=== PATIENT | female | born 1940 | race Caucasian/White ===

== ENCOUNTER 2017-12-02 06:55 | Day surgery (SDC) | payer MEDICARE, BC ==
[2017-12-01 12:08] VITALS: BMI 24.8
[2017-12-02 07:59] VITALS: BP 164/60; TEMP 97.4
--- NOTE | 2017-12-02 10:41 | RAD ---
FLUOROSCOPIC GUIDED LUMBAR MYELOGRAM: INDICATIONS: Lumbar radiculopathy. TECHNIQUE: Informed consent was obtained. Preprocedure itinerant teacher assistant images were performed. The patient was placed sup ine on the fluoroscopic table. The site overlying the right L2-L3 interlaminar space was marked. Th e site was prepped and draped in the usual sterile fashion. Buffered 1% Lidocaine was administered t o the overlying subcutaneous tissues. Under fluoroscopic guidance, a 22 gauge spinal needle was guid ed down into the thecal sac via the right L2-L3 interlaminar space. Administration of 10 mL of Isovu e-200M solution demonstrated opacification of the thecal sac and visualization of intrathecal nerve r oots. The inner stylet was placed with the needle, and the needle was removed. The patient tolerate d the procedure without difficulty. TOTAL FLUOROSCOPIC TIME: One minute. TOTAL EXPOSURE: 298.4 mGy per M2. FINDINGS: Cooler Service Supervisor images demonstrate a right-sided ureteral stent. There are surgical clips within the right upp er quadrant of the abdomen, consistent with a prior cholecystectomy. There is a dorsal column stimul ator seen overlying the midline aspect of the mid to upper back. There are laminectomy changes at L4 -L5 and at L5-S1. There is dextroscoliosis of the lumbar spine. There is multilevel disk degenerati ve and facet osteoarthritic change. IMPRESSION: Successful lumbar myelogram. POS: WILLAM
--- NOTE | 2017-12-02 11:23 | CT ---
CT LUMBAR MYELOGRAM: INDICATIONS: History of lumbar spinal radiculopathy. COMPARISON: MRI lumbar spine dated 11/17/2013. FINDINGS: The gallbladder is surgically absent. There is a stent within the right renal collecting system with the proximal aspect of the stent seen within the right renal pelvis. The distal aspect of the stent projects beyond the field of view. There is some mild residual right-sided hydronephrosis. There i s a 2.3 mm, nonobstructing calculus involving the left mid kidney. There is severe calcification inv olving the abdominopelvic vasculature. There is a dorsal column stimulator seen entering into the sp inal canal, at T12-L1. The leads appear intact and project to a generator that is beyond the field o f view. There is diffuse osteopenia. There is dextroscoliosis of the lumbar spine. There is vacuum disk phenomenon seen at L1-L2, L2-L3, L4-L5, and L5-S1, likely indicative of some disk instability. At the L5-S1 level, there is post surgical change of a laminectomy. There is a broad based disk oste ophyte complex with loss of disk space height, inducing mild to moderate bilateral neural foraminal n arrowing, which is stable to the comparison in 2003. At the L4-L5 level, there is a broad-based disk bulge, causing moderate effacement of the ventral the ru sac. There are hemilaminotomy changes involving the inferior aspect of the L4 lamina. The broad -based disk bulge appears larger. There is loss of disk space height, in addition to the disk bulge, that induces worsening moderate bilateral neural foraminal narrowing. At the L3-L4 level, there is a broad-based bulge with facet hypertrophy, inducing mild narrowing of t he neural foramina without appreciable central canal narrowing. This is stable to the prior exam. T here is a worsening broad-based disk bulge, now causing moderate central canal narrowing with worseni ng moderate to severe bilateral neural foraminal narrowing, right greater than left. At the L2-L3 level, there is a broad-based disk osteophyte complex with facet hypertrophy and loss of disk space height, inducing mild bilateral neural foraminal narrowing, left greater than right. Thi s is stable to the prior exam. At L1-L2, there is a mild broad-based bulge with facet hypertrophy, inducing mild central canal narro wing and mild bilateral neural foraminal narrowing, which is stable to the prior exam. At T12-L1, there is a mild broad-based bulge without appreciable central canal or neural foraminal na rrowing. At T11-T12, there is a stable right paracentral protrusion causing mild ventral effacement of the sub arachnoid space, and contact with the right ventral lateral aspect of the spinal cord. IMPRESSION: 1. Worsening moderate central canal narrowing and bilateral neural foraminal narrowing at L4-L5 due to a worsening broad-based disk bulge. 2. Remaining spondylitic change of the lumbar spine is similar to the comparison study, as detailed above. POS: ZAC
== END 2017-12-02 11:00 | disposition home or self-care (01) ==
LOC: RAD 06:55
PROVIDERS: ATTEND Neurological Surgery
PROC: B02BY0Z Computerized Tomography (CT Scan) of Spinal Cord using Other Contrast, Unenhanced and Enhanced (ICD-10-PCS; principal; 2017-12-02)
DX: M51.16 Intervertebral disc disorders with radiculopathy, lumbar region (principal); M47.26 Other spondylosis with radiculopathy, lumbar region; I11.0 Hypertensive heart disease with heart failure; E78.5 Hyperlipidemia, unspecified; I50.9 Heart failure, unspecified; G43.909 Migraine, unspecified, not intractable, without status migrainosus; Z88.0 Allergy status to penicillin; Z88.1 Allergy status to other antibiotic agents
CPT/HCPCS: 62304; 72132

== ENCOUNTER 2019-07-06 08:36 | Outpatient (CLI) | payer MEDICARE, BC ==
--- NOTE | 2019-07-06 09:50 | RAD ---
EXAM: Esophagram HISTORY: Dysphagia hand gastroesophageal reflux disease COMPARISON: None EXPOSURE: 1.1 minutes; 8.521 Gy per centimeter squared FINDINGS: A double contrast barium swallow/esophagram was performed. Esophageal motility is normal. No mucosal lesions are seen in the esophagus. No extrinsic compression on the esophagus is seen. Large hiatal hernia. Severe gastroesophageal reflux to the level of the proximal thoracic esophagus. A small amount of aspiration was seen during this examination. This was eventually cleared with cough ing. IMPRESSION: 1. Large hiatal hernia 2. Severe gastroesophageal reflux disease 3. Aspiration
== END 2019-07-06 08:37 | disposition home or self-care (01) ==
LOC: RAD 08:36
PROVIDERS: ATTEND Internal Medicine
DX: R13.10 Dysphagia, unspecified (principal); K44.9 Diaphragmatic hernia without obstruction or gangrene; K21.9 Gastro-esophageal reflux disease without esophagitis
CPT/HCPCS: 74220

== ENCOUNTER 2020-05-30 12:26 | Outpatient (CLI) | payer MEDICARE, BC ==
--- NOTE | 2020-05-30 15:45 | MMO ---
Bilateral MAMMO Bilat Screen [facility]. CLINICAL HISTORY: Patient is 80 years old and is seen for screening. The patient has the following family history of breast cancer: maternal aunt; paternal aunt and 4 cousin females, many cousins. The patient has no personal history of cancer. The patient has a history of left Excisional Biopsy in 1969 - benign. VIEWS: The views performed were: bilateral craniocaudal with tomosynthesis and bilateral mediolateral oblique with tomosynthesis. FILMS COMPARED: The present examination has been compared to prior imaging studies performed at [facility] on 05/13/2011, 11/16/2012, 11/19/2013 and 08/02/2015. This study has been interpreted with the assistance of computer-aided detection. MAMMOGRAM FINDINGS: The breasts are heterogeneously dense, which could obscure a lesion on mammography. Benign calcifications are noted bilaterally. There are no suspicious masses, suspicious calcifications, or new areas of architectural distortion. IMPRESSION: THERE IS NO MAMMOGRAPHIC EVIDENCE OF MALIGNANCY. A ROUTINE FOLLOW-UP MAMMOGRAM IN 1 YEAR IS RECOMMENDED. THE RESULTS OF THIS EXAM WERE SENT TO THE PATIENT. ACR BI-RADS Category 2 - Benign finding MAMMOGRAPHY NOTE: 1. A negative mammogram report should not delay a biopsy if a dominant of clinically suspicious mass is present. 2. Approximately 10% to 15% of breast cancers are not detected by mammography. 3. Adenosis and dense breasts may obscure an underlying neoplasm. Reported by: KASSANDRA ROMERO MD Electonically Signed: [id number]
== END 2020-05-30 12:27 | disposition home or self-care (01) ==
LOC: BICMAMMO 12:26
PROVIDERS: ATTEND Internal Medicine
DX: Z12.31 Encounter for screening mammogram for malignant neoplasm of breast (principal); Z80.3 Family history of malignant neoplasm of breast; Z91.89 Other specified personal risk factors, not elsewhere classified
CPT/HCPCS: 77063; 77067

== ENCOUNTER 2021-03-28 01:30 | Inpatient (IN) | payer MEDICARE, BC ==
[2021-03-28 02:16] LABS: Hemoglobin 11.5 g/dL (12.0-16.0); Mean Corpuscular Hemoglobin 32.8 pg (27.0-31.0); Mean Corpuscular Volume 93.7 fL (78.0-98.0); Mean Platelet Volume 7.3 fL (7.4-10.4); Platelet Count 364 thou/uL (130-400); RBC Distribution Width 11.5 % (11.5-14.5); White Blood Cell (WBC) Count 29.6 thou/uL (4.8-10.8)
[2021-03-28] MEDS ORDERED: Fentanyl 100 MCG/2 ML VIAL ONE ×7 (02:22→16:15)
[2021-03-28 02:33] LABS: ALT (SGPT) 43 U/L (8-55); AST (SGOT) 85 U/L (5-34); Alkaline Phosphatase 210 U/L (40-110); Anion Gap 19 mmol/L (10-20); BUN (Urea Nitrogen) 28 mg/dL (9.8-20.1); Bilirubin, Total 0.5 mg/dL (0.2-1.2); Calc. Creatinine Clearance 0 mL/min (70-130); Calcium 9.7 mg/dL (7.8-10.44); Carbon Dioxide 14 mmol/L (23-31); Chloride 96 mmol/L (98-107); Globulin 2.7 g/dL (2.4-3.5); Glucose 134 mg/dL (83-110); Lipase 8 U/L (8-78); Protein, Total 5.7 g/dL (5.8-8.1); Sodium 125 mmol/L (136-145)
[2021-03-28 02:36] LABS: Band 32 % (5-11); Lymphocytes 2 % (21-51); MDiff Complete? YES; Monocytes 1 % (0-10); Neutrophil 65 % (42-75)
[2021-03-28] MEDS ORDERED: Cefepime 2 GM VIAL ONE (02:48)
[2021-03-28 03:07] LABS: Bilirubin Negative (Negative); Blood, Urine 2+ (Negative); Clarity Extra Turbid (Clear); Glucose, Urine (Dipstick) Normal (Negative); Ketone, Urine Negative (Negative); Leukocyte 500 Leu/uL (Negative); Nitrite Negative (Negative); Protein, Urine (Dipstick) 100 mg/dL (Neg-Trace); RBC/HPF 21-50 HPF (0-3); Specific Gravity, Urine 1.024 (1.002-1.036); Squamous Epithelial 0-3 HPF (0-3); Urobilinogen Normal mg/dL (Less than 2); WBC/HPF Greater than 50 HPF (0-3); pH, Urine 5.5 (5.0-9.0)
[2021-03-28 03:11] LABS: Bacteria/HPF 1+ HPF (None Seen)
[2021-03-28] MEDS ORDERED: Vancomycin 1 GM/200 ML BAG ONE (03:43)
[2021-03-28] MEDS ORDERED: Acetaminophen 500 MG TAB ONE (05:07)
[2021-03-28 05:16] LABS: Lactic Acid 1.5 mmol/L (0.5-2.2)
[2021-03-28] MEDS ORDERED: Dextrose 5 % And 0.9 % NaCl 1,000 ML IV SCH (06:30)
[2021-03-28 06:31] VITALS: BMI 24.5
[2021-03-28 07:27] LABS: SARS-CoV-2 NAA Rapid Test Not Detected (NotDetected)
[2021-03-28] MEDS ORDERED: Vancomycin 1 GM in Premix Bag 1 BAG IVPB SCH (07:30)
[2021-03-28] MEDS ORDERED: Ondansetron ODT 4 MG TAB PO PRN (08:04)
[2021-03-28] MEDS ORDERED: Acetaminophen 650 MG Suppository PR PRN (08:04)
[2021-03-28] MEDS ORDERED: Ondansetron PF 4 MG/2 ML Vial IVP PRN (08:04)
[2021-03-28] MEDS: Heparin 5,000 UNITS/ML VIAL SC SCH ×2 (09:06→20:46)
[2021-03-28] MEDS: Gabapentin 300 MG CAP PO SCH ×3 (09:07→20:45)
[2021-03-28] MEDS: Acetaminophen 325 MG TAB PO SCH ×4 (09:08→20:45)
[2021-03-28] MEDS ORDERED: tiZANidine HCl 4 MG TAB PO SCH (09:15)
[2021-03-28 09:35] LABS: CKMB 8.3 ng/mL (0-6.6)
[2021-03-28 09:46] LABS: Sodium 124 mmol/L (136-145)
[2021-03-28 11:00] LABS: Potassium, Urine 75.5 mmol/L
[2021-03-28] MEDS ORDERED: Iothalamate Meglumine 60% 50 ML VIAL FS ONE (12:34)
[2021-03-28] MEDS ORDERED: Lidocaine 2% Jelly 5 ML TUBE ONE (13:24)
[2021-03-28] MEDS ORDERED: Cefepime 2 GM in Sodium Chloride 0.9% 100 ML IVPB SCH (15:00)
[2021-03-28] MEDS ORDERED: tiZANidine HCl 4 MG TAB ONE ×2 (15:18→20:36)
[2021-03-28] MEDS ORDERED: Ketorolac Tromethamine 30 MG/ML VIAL ONE (16:15)
[2021-03-28] MEDS ORDERED: Calcium Chloride 1 GM/10 ML Abboject SYRINGE ONE (16:20)
[2021-03-28] MEDS ORDERED: Sodium Chloride 0.9% 10 ML ONE (16:44)
[2021-03-28] MEDS ORDERED: Norepinephrine 8 MG/0.9% NS 250 ML IVPB SCH (16:45)
[2021-03-28] MEDS ORDERED: ePHEDrine Sulfate 50 MG/10 ML VIAL ONE (16:48)
[2021-03-28] MEDS ORDERED: Sodium Chloride 0.9% 30 ML ONE (16:52)
[2021-03-28] MEDS ORDERED: Albumin 25% 25 GM/100 ML BOT IVPB SCH (17:00)
[2021-03-28 17:11] LABS: Actual Bicarbonate (HCO3a) 16.7 mEq/L (22-28); Base Excess (BEa) -7.7 mEq/L (-2.0 to +3.0); CO2 Tension 30.3 mmHg (35.0-45.0); Calcium, Ionized (arterial) 1.42 mmol/L (1.12-1.30); Carboxyhemoglobin (COHb) 0.3 gm% (0.0-3.0); Hemoglobin (Hb) 10.8 g/dL (12.0-16.0); O2 Tension (PaO2), arterial 93.3 mmHg (> 60.0); Potassium - ABG Lab 3.99 mmol/L (3.70-5.30); pH, Arterial 7.36 (7.35-7.45)
[2021-03-28 17:14] LABS: Puncture Site Arterial Line
[2021-03-28 17:15] LABS: ALV-art Gradient 18.555 mmHg (0-20)
[2021-03-28 17:49] LABS: Hemoglobin 10.5 g/dL (12.0-16.0); Mean Corpuscular HGB CONC 32.9 g/dL (32.0-36.0); Mean Corpuscular Volume 94.2 fL (78.0-98.0); Mean Platelet Volume 7.3 fL (7.4-10.4); Platelet Count 325 thou/uL (130-400); RBC Distribution Width 11.4 % (11.5-14.5); Red Blood Cell (RBC) Count 3.38 mill/uL (4.20-5.40); White Blood Cell (WBC) Count 21.7 thou/uL (4.8-10.8)
[2021-03-28 18:07] LABS: Sodium 128 mmol/L (136-145)
[2021-03-28 18:12] LABS: Anion Gap 12 mmol/L (10-20); BUN (Urea Nitrogen) 29 mg/dL (9.8-20.1); Calc. Creatinine Clearance 22 mL/min (70-130); Calcium 9.9 mg/dL (7.8-10.44); Carbon Dioxide 17 mmol/L (23-31); Chloride 105 mmol/L (98-107); Glucose 98 mg/dL (83-110); Potassium 4.1 mmol/L (3.5-5.1); Sodium 130 mmol/L (136-145)
[2021-03-28 18:23] LABS: Band 54 % (5-11); Burr Cells SLIGHT = 2-5 cells (100X) (0-1/hpf); Lymphocytes 3 % (21-51); MDiff Complete? YES; Metamyelocyte 2 % (0-0); Monocytes 4 % (0-10); Neutrophil 37 % (42-75); Platelet Morphology Comment Appears Adequate
[2021-03-28] MEDS ORDERED: Gabapentin 300 MG CAP ONE (20:36)
[2021-03-28] MEDS ORDERED: Heparin 5,000 UNITS/ML VIAL ONE (20:37)
[2021-03-28] MEDS ORDERED: Acetaminophen 325 MG TAB ONE (20:37)
[2021-03-28] MEDS: Sodium Chloride 0.9% 1,000 ML IV SCH (20:45)
[2021-03-28] MEDS: tiZANidine HCl 4 MG TAB PO SCH (20:47)
[2021-03-28] MEDS ORDERED: Sodium Chloride 0.9% 40 ML ONE (21:39)
[2021-03-28] MEDS: Albumin 25% 25 GM/100 ML BOT IVPB SCH (21:45)
[2021-03-28 22:44] LABS: Sodium 133 mmol/L (136-145)
[2021-03-29] MEDS ORDERED: Acetaminophen 325 MG TAB ONE ×4 (00:47→04:18)
[2021-03-29] MEDS: Acetaminophen 325 MG TAB PO SCH ×6 (00:49→19:41)
[2021-03-29] MEDS: Sodium Chloride 0.9% 1,000 ML IV SCH ×3 (03:19→22:41)
[2021-03-29] MEDS: Cefepime 1 GM in Sodium Chloride 0.9% 100 ML IVPB SCH (03:19)
[2021-03-29] MEDS: Albumin 25% 25 GM/100 ML BOT IVPB SCH ×4 (03:20→18:48)
[2021-03-29] MEDS ORDERED: Vancomycin HCl 750 MG in Sodium Chloride 0.9% 250 ML 250 ML IVPB SCH ×2 (06:00→08:00)
[2021-03-29 06:52] LABS: #Basophils 0.1 thou/uL (0.0-0.2); #Monocytes 0.8 thou/uL (0.11-0.59); #Neutrophils 16.2 thou/uL (1.40-6.50); %Basophils 0.3 % (0.0-1.0); %Eosinophils 0.2 % (0.0-10.0); %Lymphocytes 5.4 % (21.0-51.0); %Monocytes 4.4 % (0.0-10.0); %Neutrophils 89.7 % (42.0-75.0); Hemoglobin 10.3 g/dL (12.0-16.0); Mean Corpuscular HGB CONC 34.3 g/dL (32.0-36.0); Mean Corpuscular Hemoglobin 32.4 pg (27.0-31.0); Mean Corpuscular Volume 94.6 fL (78.0-98.0); Mean Platelet Volume 7.1 fL (7.4-10.4); Platelet Count 322 thou/uL (130-400); RBC Distribution Width 11.6 % (11.5-14.5); Red Blood Cell (RBC) Count 3.17 mill/uL (4.20-5.40); White Blood Cell (WBC) Count 18.1 thou/uL (4.8-10.8)
[2021-03-29 07:17] LABS: Vancomycin, Random 7.2 ug/mL (See Comment)
[2021-03-29 07:19] LABS: ALT (SGPT) 31 U/L (8-55); AST (SGOT) 46 U/L (5-34); Alkaline Phosphatase 143 U/L (40-110); Anion Gap 14 mmol/L (10-20); BUN (Urea Nitrogen) 26 mg/dL (9.8-20.1); Bilirubin, Total 0.3 mg/dL (0.2-1.2); Calc. Creatinine Clearance 29 mL/min (70-130); Calcium 10.5 mg/dL (7.8-10.44); Carbon Dioxide 16 mmol/L (23-31); Chloride 108 mmol/L (98-107); Globulin 2.9 g/dL (2.4-3.5); Glucose 84 mg/dL (83-110); Protein, Total 5.9 g/dL (5.8-8.1); Sodium 134 mmol/L (136-145)
[2021-03-29] MEDS ORDERED: traMADol HCl 50 MG TAB PO PRN (07:20)
[2021-03-29] MEDS: Heparin 5,000 UNITS/ML VIAL SC SCH ×2 (08:00→20:50)
[2021-03-29] MEDS: Gabapentin 300 MG CAP PO SCH (08:02)
[2021-03-29] MEDS: Fentanyl 100 MCG/2 ML VIAL SLOW IVP PRN (08:03)
[2021-03-29 09:32] LABS: Sodium 135 mmol/L (136-145)
[2021-03-29] MEDS: tiZANidine HCl 4 MG TAB PO SCH ×2 (10:46→20:50)
[2021-03-29 15:41] LABS: Sodium 135 mmol/L (136-145)
[2021-03-29] MEDS: HYDROcodone/Acetaminophen 5/325 mg Tablet PO PRN (16:02)
[2021-03-29] MEDS: traMADol HCl 50 MG TAB PO PRN (19:41)
[2021-03-30] MEDS: Acetaminophen 325 MG TAB PO SCH ×6 (00:18→20:55)
[2021-03-30] MEDS: Fentanyl 100 MCG/2 ML VIAL SLOW IVP PRN (03:41)
[2021-03-30] MEDS: Cefepime 1 GM in Sodium Chloride 0.9% 100 ML IVPB SCH (03:41)
[2021-03-30 06:11] LABS: #Eosinphils 0.1 thou/uL (0.0-0.7); #Lymphocytes 1.2 thou/uL (1.20-3.40); #Monocytes 0.6 thou/uL (0.11-0.59); #Neutrophils 12.4 thou/uL (1.40-6.50); %Basophils 0.2 % (0.0-1.0); %Eosinophils 0.5 % (0.0-10.0); %Lymphocytes 8.5 % (21.0-51.0); %Monocytes 3.9 % (0.0-10.0); %Neutrophils 86.9 % (42.0-75.0); Hemoglobin 9.9 g/dL (12.0-16.0); Mean Corpuscular HGB CONC 33.7 g/dL (32.0-36.0); Mean Corpuscular Volume 95.1 fL (78.0-98.0); Mean Platelet Volume 7.2 fL (7.4-10.4); Platelet Count 295 thou/uL (130-400); RBC Distribution Width 11.6 % (11.5-14.5); Red Blood Cell (RBC) Count 3.09 mill/uL (4.20-5.40); White Blood Cell (WBC) Count 14.3 thou/uL (4.8-10.8)
[2021-03-30 06:37] LABS: ALT (SGPT) 30 U/L (8-55); AST (SGOT) 36 U/L (5-34); Albumin 2.7 g/dL (3.4-4.8); Alkaline Phosphatase 122 U/L (40-110); Anion Gap 18 mmol/L (10-20); BUN (Urea Nitrogen) 22 mg/dL (9.8-20.1); Bilirubin, Total 0.2 mg/dL (0.2-1.2); Calc. Creatinine Clearance 44 mL/min (70-130); Calcium 9.6 mg/dL (7.8-10.44); Carbon Dioxide 13 mmol/L (23-31); Chloride 114 mmol/L (98-107); Globulin 1.9 g/dL (2.4-3.5); Protein, Total 4.6 g/dL (5.8-8.1); Sodium 141 mmol/L (136-145)
[2021-03-30 06:40] LABS: Glucose 50 mg/dL (83-110)
[2021-03-30 07:19] LABS: Vancomycin, Random 10.7 ug/mL (See Comment)
[2021-03-30] MEDS ORDERED: Dextrose 5% in Water 1,000 ML IV PRN (07:24)
[2021-03-30] MEDS ORDERED: Dextrose 50% Abboject 50 ML SYRINGE SLOW IVP PRN (07:24)
[2021-03-30] MEDS: tiZANidine HCl 4 MG TAB PO SCH ×2 (08:50→20:55)
[2021-03-30] MEDS: Heparin 5,000 UNITS/ML VIAL SC SCH ×2 (08:53→20:57)
[2021-03-30] MEDS: Gabapentin 300 MG CAP PO SCH (08:54)
[2021-03-30] MEDS: Sodium Bicarbonate 150 MEQ in Dextrose 5% in Water 1,000 ML IV SCH ×2 (08:55→21:26)
[2021-03-30] MEDS: Vancomycin 1 GM in Premix Bag 1 BAG IVPB SCH (10:02)
[2021-03-31] MEDS: Acetaminophen 325 MG TAB PO SCH ×6 (00:30→20:59)
[2021-03-31] MEDS: HYDROcodone/Acetaminophen 5/325 mg Tablet PO PRN ×3 (02:03→17:56)
[2021-03-31] MEDS: Cefepime 1 GM in Sodium Chloride 0.9% 100 ML IVPB SCH (02:41)
[2021-03-31 06:50] LABS: #Eosinphils 0.1 thou/uL (0.0-0.7); #Lymphocytes 2.2 thou/uL (1.20-3.40); #Monocytes 0.6 thou/uL (0.11-0.59); #Neutrophils 12.2 thou/uL (1.40-6.50); %Eosinophils 0.6 % (0.0-10.0); %Lymphocytes 14.8 % (21.0-51.0); %Monocytes 3.7 % (0.0-10.0); %Neutrophils 80.8 % (42.0-75.0); Hemoglobin 12.8 g/dL (12.0-16.0); Mean Corpuscular HGB CONC 32.8 g/dL (32.0-36.0); Mean Corpuscular Hemoglobin 30.6 pg (27.0-31.0); Mean Corpuscular Volume 93.4 fL (78.0-98.0); Mean Platelet Volume 7.3 fL (7.4-10.4); Platelet Count 423 thou/uL (130-400); RBC Distribution Width 11.7 % (11.5-14.5); Red Blood Cell (RBC) Count 4.17 mill/uL (4.20-5.40); White Blood Cell (WBC) Count 15.1 thou/uL (4.8-10.8)
[2021-03-31 07:10] LABS: ALT (SGPT) 34 U/L (8-55); AST (SGOT) 30 U/L (5-34); Albumin 3.4 g/dL (3.4-4.8); Alkaline Phosphatase 149 U/L (40-110); Anion Gap 11 mmol/L (10-20); BUN (Urea Nitrogen) 13 mg/dL (9.8-20.1); Bilirubin, Total 0.3 mg/dL (0.2-1.2); Calc. Creatinine Clearance 48 mL/min (70-130); Calcium 10.5 mg/dL (7.8-10.44); Carbon Dioxide 25 mmol/L (23-31); Chloride 106 mmol/L (98-107); Globulin 2.6 g/dL (2.4-3.5); Glucose 118 mg/dL (83-110); Potassium 3.4 mmol/L (3.5-5.1); Sodium 139 mmol/L (136-145)
[2021-03-31] MEDS: Heparin 5,000 UNITS/ML VIAL SC SCH ×2 (08:37→21:02)
[2021-03-31] MEDS: tiZANidine HCl 4 MG TAB PO SCH ×2 (08:38→20:59)
[2021-03-31] MEDS: Gabapentin 300 MG CAP PO SCH (08:38)
[2021-03-31] MEDS: Vancomycin 1 GM in Premix Bag 1 BAG IVPB SCH (09:19)
[2021-03-31] MEDS: Sodium Bicarbonate 150 MEQ in Dextrose 5% in Water 1,000 ML IV SCH (11:48)
[2021-03-31] MEDS: Potassium Chloride 30 MEQ in Sodium Chloride 0.9% 1,000 ML IV SCH (11:53)
[2021-03-31] MEDS: Lorazepam 0.5 MG TAB PO PRN (12:52)
[2021-03-31] MEDS: Docusate 100 MG CAP PO SCH (21:01)
[2021-03-31] MEDS: Fentanyl 100 MCG/2 ML VIAL SLOW IVP PRN (21:01)
[2021-04-01] MEDS: Potassium Chloride 30 MEQ in Sodium Chloride 0.9% 1,000 ML IV SCH ×2 (00:44→14:38)
[2021-04-01] MEDS: Acetaminophen 325 MG TAB PO SCH ×6 (00:44→22:45)
[2021-04-01] MEDS: Cefepime 1 GM in Sodium Chloride 0.9% 100 ML IVPB SCH (02:09)
[2021-04-01] MEDS: Lorazepam 0.5 MG TAB PO PRN (02:09)
[2021-04-01 04:28] LABS: #Eosinphils 0.1 thou/uL (0.0-0.7); #Lymphocytes 2.3 thou/uL (1.20-3.40); #Monocytes 0.5 thou/uL (0.11-0.59); #Neutrophils 8.2 thou/uL (1.40-6.50); %Basophils 0.2 % (0.0-1.0); %Eosinophils 0.6 % (0.0-10.0); %Lymphocytes 20.6 % (21.0-51.0); %Monocytes 4.7 % (0.0-10.0); %Neutrophils 73.8 % (42.0-75.0); Hemoglobin 12.3 g/dL (12.0-16.0); Mean Corpuscular HGB CONC 32.4 g/dL (32.0-36.0); Mean Corpuscular Volume 92.6 fL (78.0-98.0); Platelet Count 403 thou/uL (130-400); RBC Distribution Width 11.7 % (11.5-14.5); Red Blood Cell (RBC) Count 4.11 mill/uL (4.20-5.40); White Blood Cell (WBC) Count 11.1 thou/uL (4.8-10.8)
[2021-04-01 04:45] LABS: ALT (SGPT) 32 U/L (8-55); AST (SGOT) 32 U/L (5-34); Alkaline Phosphatase 130 U/L (40-110); Anion Gap 12 mmol/L (10-20); BUN (Urea Nitrogen) 12 mg/dL (9.8-20.1); Bilirubin, Total 0.4 mg/dL (0.2-1.2); Calc. Creatinine Clearance 56 mL/min (70-130); Carbon Dioxide 28 mmol/L (23-31); Chloride 105 mmol/L (98-107); Globulin 2.4 g/dL (2.4-3.5); Glucose 110 mg/dL (83-110); Potassium 3.4 mmol/L (3.5-5.1); Protein, Total 5.4 g/dL (5.8-8.1); Sodium 142 mmol/L (136-145)
[2021-04-01] MEDS: Fentanyl 100 MCG/2 ML VIAL SLOW IVP PRN ×2 (08:44→18:16)
[2021-04-01] MEDS: Heparin 5,000 UNITS/ML VIAL SC SCH ×3 (08:44→22:39)
[2021-04-01] MEDS: Amlodipine 5 MG TAB PO SCH ×2 (08:48→12:20)
[2021-04-01] MEDS: tiZANidine HCl 4 MG TAB PO SCH ×3 (08:48→22:48)
[2021-04-01] MEDS: Fish Oil 1,000 MG CAP PO SCH ×2 (08:48→12:20)
[2021-04-01] MEDS: Docusate 100 MG CAP PO SCH ×3 (08:48→22:44)
[2021-04-01] MEDS: Gabapentin 300 MG CAP PO SCH ×2 (08:49→12:20)
[2021-04-01 09:47] LABS: Vancomycin, Trough 13.1 ug/mL
[2021-04-01] MEDS: VANCOMYCIN 1.25 GM/250 ML BAG 1.25 GM in Premix Bag 1 BAG IVPB SCH (10:10)
[2021-04-01] MEDS: Atorvastatin Calcium 40 MG TAB PO SCH (22:43)
[2021-04-02] MEDS: Acetaminophen 325 MG TAB PO SCH ×6 (00:15→21:15)
[2021-04-02] MEDS: Cefepime 1 GM in Sodium Chloride 0.9% 100 ML IVPB SCH (02:56)
[2021-04-02] MEDS: Potassium Chloride 30 MEQ in Sodium Chloride 0.9% 1,000 ML IV SCH ×2 (02:57→15:45)
[2021-04-02] MEDS: Fentanyl 100 MCG/2 ML VIAL SLOW IVP PRN ×3 (03:33→23:33)
[2021-04-02 04:03] LABS: ALT (SGPT) 34 U/L (8-55); AST (SGOT) 43 U/L (5-34); Albumin 3.1 g/dL (3.4-4.8); Alkaline Phosphatase 133 U/L (40-110); Anion Gap 14 mmol/L (10-20); BUN (Urea Nitrogen) 9 mg/dL (9.8-20.1); Bilirubin, Total 0.5 mg/dL (0.2-1.2); Calc. Creatinine Clearance 60 mL/min (70-130); Calcium 9.3 mg/dL (7.8-10.44); Carbon Dioxide 29 mmol/L (23-31); Chloride 103 mmol/L (98-107); Globulin 2.4 g/dL (2.4-3.5); Glucose 106 mg/dL (83-110); Hemoglobin 13.6 g/dL (12.0-16.0); Lymphocytes 10 % (21-51); MDiff Complete? YES; Mean Corpuscular HGB CONC 33.6 g/dL (32.0-36.0); Mean Corpuscular Volume 92.2 fL (78.0-98.0); Mean Platelet Volume 6.9 fL (7.4-10.4); Monocytes 6 % (0-10); Neutrophil 84 % (42-75); Platelet Count 439 thou/uL (130-400); Platelet Morphology Comment Appears Increased; Potassium 3.6 mmol/L (3.5-5.1); Protein, Total 5.5 g/dL (5.8-8.1); RBC Distribution Width 11.7 % (11.5-14.5); RBC Morphology Normal; Red Blood Cell (RBC) Count 4.38 mill/uL (4.20-5.40); Sodium 142 mmol/L (136-145)
[2021-04-02] MEDS: Fish Oil 1,000 MG CAP PO SCH (09:05)
[2021-04-02] MEDS: Amlodipine 5 MG TAB PO SCH (09:05)
[2021-04-02] MEDS: Docusate 100 MG CAP PO SCH ×2 (09:05→23:21)
[2021-04-02] MEDS: Gabapentin 300 MG CAP PO SCH (09:06)
[2021-04-02] MEDS: tiZANidine HCl 4 MG TAB PO SCH ×2 (09:07→23:22)
[2021-04-02] MEDS: VANCOMYCIN 1.25 GM/250 ML BAG 1.25 GM in Premix Bag 1 BAG IVPB SCH (10:10)
[2021-04-02] MEDS: hydrALAZINE 20 MG/ML VIAL SLOW IVP PRN ×2 (13:25→18:00)
[2021-04-02] MEDS: Atorvastatin Calcium 40 MG TAB PO SCH (21:15)
[2021-04-02] MEDS: Heparin 5,000 UNITS/ML VIAL SC SCH (23:21)
[2021-04-03] MEDS: Acetaminophen 325 MG TAB PO SCH ×7 (00:15→21:22)
[2021-04-03] MEDS: Cefepime 1 GM in Sodium Chloride 0.9% 100 ML IVPB SCH (03:28)
[2021-04-03] MEDS: Potassium Chloride 30 MEQ in Sodium Chloride 0.9% 1,000 ML IV SCH (04:55)
[2021-04-03] MEDS: tiZANidine HCl 4 MG TAB PO SCH ×2 (09:17→21:23)
[2021-04-03] MEDS: Fish Oil 1,000 MG CAP PO SCH (09:17)
[2021-04-03] MEDS: Docusate 100 MG CAP PO SCH ×2 (09:17→21:22)
[2021-04-03] MEDS: Amlodipine 5 MG TAB PO SCH (09:17)
[2021-04-03] MEDS: Gabapentin 300 MG CAP PO SCH (09:18)
[2021-04-03] MEDS: Heparin 5,000 UNITS/ML VIAL SC SCH ×2 (09:18→21:31)
[2021-04-03 09:20] LABS: Hemoglobin 13.9 g/dL (12.0-16.0); Mean Corpuscular HGB CONC 33.5 g/dL (32.0-36.0); Mean Corpuscular Hemoglobin 31.2 pg (27.0-31.0); Mean Corpuscular Volume 93.3 fL (78.0-98.0); Mean Platelet Volume 6.8 fL (7.4-10.4); Platelet Count 450 thou/uL (130-400); Red Blood Cell (RBC) Count 4.46 mill/uL (4.20-5.40)
[2021-04-03 09:34] LABS: Anion Gap 19 mmol/L (10-20); BUN (Urea Nitrogen) 14 mg/dL (9.8-20.1); Calc. Creatinine Clearance 49 mL/min (70-130); Carbon Dioxide 21 mmol/L (23-31); Chloride 109 mmol/L (98-107); Potassium 4.1 mmol/L (3.5-5.1); Sodium 145 mmol/L (136-145)
[2021-04-03 09:35] LABS: Calcium 9.5 mg/dL (7.8-10.44); Glucose 135 mg/dL (83-110)
[2021-04-03 10:40] LABS: Band 4 % (5-11); Lymphocytes 15 % (21-51); MDiff Complete? YES; Metamyelocyte 1 % (0-0); Monocytes 5 % (0-10); Myelocyte 2 % (0-0); Neutrophil 72 % (42-75); Platelet Morphology Comment Appears Increased; Polychromasia SLIGHT = 2-3 cells (100X) (0-2/hpf); Reactive Lymphocytes 1 % (0-10); White Blood Cell (WBC) Count 19.9 thou/uL (4.8-10.8)
[2021-04-03] MEDS: VANCOMYCIN 1.25 GM/250 ML BAG 1.25 GM in Premix Bag 1 BAG IVPB SCH (10:50)
[2021-04-03] MEDS: Fentanyl 100 MCG/2 ML VIAL SLOW IVP PRN (11:30)
[2021-04-03] MEDS ORDERED: MEROPENEM 1 GM/50 ML 1 GM in Premix Bag 1 BAG IVPB SCH (14:00)
[2021-04-03] MEDS ORDERED: Meropenem 1 GM in Sodium Chloride 0.9% 100 ML IVPB SCH (14:00)
[2021-04-03 16:32] LABS: Actual Bicarbonate (HCO3a) 22.4 mEq/L (22-28); Base Excess (BEa) 0.7 mEq/L (-2.0 to +3.0); Calcium, Ionized (arterial) 1.28 mmol/L (1.12-1.30); Carboxyhemoglobin (COHb) 0.6 gm% (0.0-3.0); Hemoglobin (Hb) 13.8 g/dL (12.0-16.0); Potassium - ABG Lab 3.72 mmol/L (3.70-5.30); pH, Arterial 7.52 (7.35-7.45)
[2021-04-03 16:45] LABS: O2 Tension (PaO2), arterial 55.4 mmHg (> 60.0); Puncture Site LBA
[2021-04-03] MEDS ORDERED: Furosemide 100 MG/10 ML VIAL SLOW IVP SCH (17:00)
[2021-04-03] MEDS: Labetalol HCl 100 MG/20 ML VIAL SLOW IVP PRN (17:23)
[2021-04-03 17:30] LABS: Hemoglobin 13.3 g/dL (12.0-16.0); Mean Corpuscular HGB CONC 32.9 g/dL (32.0-36.0); Mean Corpuscular Hemoglobin 30.6 pg (27.0-31.0); Mean Corpuscular Volume 92.9 fL (78.0-98.0); Platelet Count 496 thou/uL (130-400); RBC Distribution Width 12.3 % (11.5-14.5); Red Blood Cell (RBC) Count 4.36 mill/uL (4.20-5.40); White Blood Cell (WBC) Count 21.3 thou/uL (4.8-10.8)
[2021-04-03 18:00] LABS: Band 2 % (5-11); Lymphocytes 6 % (21-51); MDiff Complete? YES; Monocytes 3 % (0-10); Neutrophil 85 % (42-75); Platelet Morphology Comment Appears Increased; RBC Morphology Normal; Reactive Lymphocytes 4 % (0-10)
[2021-04-03 18:03] LABS: ALT (SGPT) 43 U/L (8-55); AST (SGOT) 48 U/L (5-34); Albumin 3.5 g/dL (3.4-4.8); Alkaline Phosphatase 129 U/L (40-110); Anion Gap 21 mmol/L (10-20); BUN (Urea Nitrogen) 16 mg/dL (9.8-20.1); Bilirubin, Total 0.6 mg/dL (0.2-1.2); Calc. Creatinine Clearance 48 mL/min (70-130); Carbon Dioxide 19 mmol/L (23-31); Chloride 110 mmol/L (98-107); Globulin 2.6 g/dL (2.4-3.5); Glucose 131 mg/dL (83-110); Protein, Total 6.1 g/dL (5.8-8.1); Sodium 146 mmol/L (136-145)
[2021-04-03] MEDS ORDERED: Fentanyl 100 MCG/2 ML VIAL SLOW IVP PRN (20:32)
[2021-04-03] MEDS: Atorvastatin Calcium 40 MG TAB PO SCH (21:22)
[2021-04-03] MEDS: MEROPENEM 1 GM/50 ML 1 GM in Premix Bag 1 BAG IVPB SCH (23:03)
[2021-04-04] MEDS: Acetaminophen 325 MG TAB PO SCH ×6 (00:30→20:57)
[2021-04-04] MEDS ORDERED: Fentanyl 100 MCG/2 ML VIAL SLOW IVP PRN (00:33)
[2021-04-04 05:18] LABS: #Eosinphils 0.6 thou/uL (0.0-0.7); #Lymphocytes 2.3 thou/uL (1.20-3.40); #Monocytes 1.1 thou/uL (0.11-0.59); #Neutrophils 10.4 thou/uL (1.40-6.50); %Basophils 0.1 % (0.0-1.0); %Eosinophils 4.3 % (0.0-10.0); %Lymphocytes 16.1 % (21.0-51.0); %Monocytes 7.4 % (0.0-10.0); %Neutrophils 72.2 % (42.0-75.0); Hemoglobin 11.8 g/dL (12.0-16.0); Mean Corpuscular HGB CONC 33.8 g/dL (32.0-36.0); Mean Corpuscular Hemoglobin 31.5 pg (27.0-31.0); Mean Corpuscular Volume 93.1 fL (78.0-98.0); Platelet Count 381 thou/uL (130-400); RBC Distribution Width 12.2 % (11.5-14.5); Red Blood Cell (RBC) Count 3.74 mill/uL (4.20-5.40); White Blood Cell (WBC) Count 14.5 thou/uL (4.8-10.8)
[2021-04-04] MEDS: MEROPENEM 1 GM/50 ML 1 GM in Premix Bag 1 BAG IVPB SCH ×2 (05:19→18:45)
[2021-04-04 05:33] LABS: Anion Gap 16 mmol/L (10-20); BUN (Urea Nitrogen) 17 mg/dL (9.8-20.1); Calc. Creatinine Clearance 48 mL/min (70-130); Calcium 9.6 mg/dL (7.8-10.44); Carbon Dioxide 25 mmol/L (23-31); Chloride 110 mmol/L (98-107); Glucose 99 mg/dL (83-110); Potassium 3.5 mmol/L (3.5-5.1); Sodium 147 mmol/L (136-145)
[2021-04-04] MEDS: Docusate 100 MG CAP PO SCH ×2 (08:40→20:52)
[2021-04-04] MEDS: Fish Oil 1,000 MG CAP PO SCH (08:40)
[2021-04-04] MEDS ORDERED: Furosemide 40 MG/4 ML VIAL SLOW IVP SCH (09:00)
[2021-04-04] MEDS: Heparin 5,000 UNITS/ML VIAL SC SCH ×2 (10:17→20:53)
[2021-04-04] MEDS: VANCOMYCIN 1.25 GM/250 ML BAG 1.25 GM in Premix Bag 1 BAG IVPB SCH (10:27)
[2021-04-04] MEDS: Labetalol HCl 100 MG/20 ML VIAL SLOW IVP PRN (14:32)
[2021-04-04] MEDS: Gabapentin 300 MG CAP PO SCH (15:31)
[2021-04-04] MEDS: tiZANidine HCl 4 MG TAB PO SCH ×2 (15:33→20:52)
[2021-04-04 15:34] LABS: SARS-CoV-2 PCR by NAA Not Detected (NotDetected)
[2021-04-04] MEDS: Amlodipine 5 MG TAB PO SCH (15:34)
[2021-04-04] MEDS: Carvedilol 6.25 MG TAB PO SCH (20:53)
[2021-04-04] MEDS ORDERED: Atorvastatin Calcium 20 MG TAB PO SCH (21:15)
[2021-04-05] MEDS: Acetaminophen 325 MG TAB PO SCH ×5 (02:23→15:33)
[2021-04-05 05:11] LABS: Anion Gap 16 mmol/L (10-20); BUN (Urea Nitrogen) 22 mg/dL (9.8-20.1); Calc. Creatinine Clearance 51 mL/min (70-130); Calcium 9.4 mg/dL (7.8-10.44); Carbon Dioxide 26 mmol/L (23-31); Chloride 104 mmol/L (98-107); Glucose 83 mg/dL (83-110); Potassium 3.1 mmol/L (3.5-5.1); Sodium 143 mmol/L (136-145)
[2021-04-05] MEDS: traMADol HCl 50 MG TAB PO PRN ×2 (05:14→09:47)
[2021-04-05] MEDS: MEROPENEM 1 GM/50 ML 1 GM in Premix Bag 1 BAG IVPB SCH (05:18)
[2021-04-05 06:09] LABS: #Eosinphils 0.1 thou/uL (0.0-0.7); #Lymphocytes 2.7 thou/uL (1.20-3.40); #Monocytes 0.9 thou/uL (0.11-0.59); %Basophils 0.1 % (0.0-1.0); %Lymphocytes 21.3 % (21.0-51.0); %Monocytes 7.2 % (0.0-10.0); %Neutrophils 70.3 % (42.0-75.0); Mean Corpuscular HGB CONC 32.8 g/dL (32.0-36.0); Mean Corpuscular Hemoglobin 30.5 pg (27.0-31.0); Mean Corpuscular Volume 93.1 fL (78.0-98.0); Mean Platelet Volume 7.6 fL (7.4-10.4); Platelet Count 335 thou/uL (130-400); RBC Distribution Width 12.4 % (11.5-14.5); Red Blood Cell (RBC) Count 3.61 mill/uL (4.20-5.40); White Blood Cell (WBC) Count 12.8 thou/uL (4.8-10.8)
[2021-04-05] MEDS ORDERED: Potassium Chloride 20 MEQ TAB PO SCH ×2 (08:45→17:00)
[2021-04-05] MEDS ORDERED: Furosemide 40 MG/4 ML VIAL SLOW IVP SCH (08:45)
[2021-04-05] MEDS: Gabapentin 300 MG CAP PO SCH (09:12)
[2021-04-05] MEDS: Fish Oil 1,000 MG CAP PO SCH (09:15)
[2021-04-05] MEDS: Carvedilol 6.25 MG TAB PO SCH (09:15)
[2021-04-05] MEDS: tiZANidine HCl 4 MG TAB PO SCH (09:15)
[2021-04-05] MEDS: Heparin 5,000 UNITS/ML VIAL SC SCH (09:16)
[2021-04-05] MEDS: Amlodipine 5 MG TAB PO SCH (09:16)
[2021-04-05] MEDS: VANCOMYCIN 1.25 GM/250 ML BAG 1.25 GM in Premix Bag 1 BAG IVPB SCH ×2 (09:17→11:33)
[2021-04-05] MEDS: Docusate 100 MG CAP PO SCH (09:42)
[2021-04-05 15:48] VITALS: BP 132/60; TEMP 98.5
[2021-04-05] MEDS ORDERED: Atorvastatin Calcium 20 MG TAB PO SCH (21:00)
== END 2021-04-05 15:50 | DRG 853 ==
LOC: ERS 01:30 → T4-B 04:26 → PACU-TCU 22:22 → CCU 03-29 06:18 → T4-B 03-29 22:38 → 2NO 04-03 17:51
PROVIDERS: ADMIT Student in an Organized Health Care Education/Training Program; ATTEND Internal Medicine
PROC: 0T778DZ Dilation of Left Ureter with Intraluminal Device, Via Natural or Artificial Opening Endoscopic (ICD-10-PCS; principal; 2021-03-28)
PROC: BT1F1ZZ Fluoroscopy of Left Kidney, Ureter and Bladder using Low Osmolar Contrast (ICD-10-PCS; 2021-03-28)
PROC: 3E033XZ Introduction of Vasopressor into Peripheral Vein, Percutaneous Approach (ICD-10-PCS; 2021-03-28)
DX: A41.9 Sepsis, unspecified organism (principal); G93.41 Metabolic encephalopathy; R65.21 Severe sepsis with septic shock; J96.01 Acute respiratory failure with hypoxia; J81.0 Acute pulmonary edema; E87.1 Hypo-osmolality and hyponatremia; E87.2 Acidosis; N17.9 Acute kidney failure, unspecified; N13.6 Pyonephrosis; I10 Essential (primary) hypertension; E78.5 Hyperlipidemia, unspecified; E77.8 Other disorders of glycoprotein metabolism; K21.9 Gastro-esophageal reflux disease without esophagitis; I25.10 Atherosclerotic heart disease of native coronary artery without angina pectoris; R19.7 Diarrhea, unspecified; M54.50 Low back pain, unspecified; E86.0 Dehydration; G62.9 Polyneuropathy, unspecified; G89.29 Other chronic pain; Z20.822 Contact with and (suspected) exposure to COVID-19; R77.8 Other specified abnormalities of plasma proteins; E87.70 Fluid overload, unspecified; Z86.73 Personal history of transient ischemic attack (TIA), and cerebral infarction without residual deficits; Z88.0 Allergy status to penicillin; Z88.2 Allergy status to sulfonamides; Z88.1 Allergy status to other antibiotic agents; Z98.890 Other specified postprocedural states; Z79.82 Long term (current) use of aspirin; Z79.899 Other long term (current) drug therapy
CPT/HCPCS: 36415; 36416; 36600; 51701; 70450; 71045; 74176; 74420; 80048; 80053; 80202; 81003; 81015; 82436; 82533; 82553; 82805; 83605; 83690; 83930; 83935; 84133; 84295; 84300; 84443; 84484; 84540; 84550; 84560; 85025; 87040; 87045; 87046; 87086; 87324; 87427; 87449; 93005; 93010; 93306; 96365; 96366; 96367; 96375; 96376; C2617; J0360; J0692; J1644; J1885; J1940; J2185; J2405; J3010; J3370; J3480; J3490; J7042; J7050; J7070; P9047; Q9961; U0002; U0003; U0005

== ENCOUNTER 2021-05-11 15:36 | Outpatient (CLI) | payer MEDICARE, BC ==
[2021-05-11 16:43] LABS: Hemoglobin 14.2 g/dL (12.0-15.5); Mean Corpuscular Hemoglobin 30.5 pg (27.0-33.0); Mean Corpuscular Volume 95.5 fl (81.6-98.3); Mean Platelet Volume 10.2 fl (7.4-10.4); Platelet Count 244 10x3/uL (150-450); RBC Distribution Width 14.4 % (11.5-14.5); Red Blood Cell (RBC) Count 4.65 10x6/uL (3.90-5.03); White Blood Cell (WBC) Count 9.6 10x3/uL (3.5-10.5)
[2021-05-11 16:55] LABS: Anion Gap 16 mmol/L (10-20); BUN (Urea Nitrogen) 16 mg/dL (9.8-20.1); Calc. Creatinine Clearance 0 mL/min (70-130); Calcium 11.8 mg/dL (7.8-10.44); Carbon Dioxide 20 mmol/L (23-31); Chloride 108 mmol/L (98-107); Glucose 106 mg/dL (83-110); Potassium 4.4 mmol/L (3.5-5.1); Sodium 140 mmol/L (136-145)
[2021-05-12 16:26] LABS: SARS-CoV-2 PCR by NAA Not Detected (NotDetected)
== END 2021-05-11 15:37 | disposition home or self-care (01) ==
LOC: LABBT 15:36
PROVIDERS: ATTEND Urology
DX: Z01.818 Encounter for other preprocedural examination (principal); N39.0 Urinary tract infection, site not specified; N81.10 Cystocele, unspecified; N20.1 Calculus of ureter; Z20.822 Contact with and (suspected) exposure to COVID-19
CPT/HCPCS: 80048; 85027; U0003; U0005; 93005; 93010

== ENCOUNTER 2021-05-15 06:23 | Day surgery (SDC) | payer MEDICARE, BC ==
[2021-05-09 10:37] VITALS: BMI 21.9
[2021-05-15] MEDS ORDERED: Fentanyl 100 MCG/2 ML VIAL ONE (06:55)
[2021-05-15] MEDS ORDERED: Levofloxacin 500 mg/D5W 100 ml Premix Bag ONE (07:07)
[2021-05-15] MEDS ORDERED: Ondansetron PF 4 MG/2 ML Vial ONE (07:25)
[2021-05-15] MEDS ORDERED: ePHEDrine 50 MG/ML VIAL ONE (07:25)
[2021-05-15] MEDS ORDERED: PROPOFOL 200 MG/20 ML VIAL ONE (07:25)
[2021-05-15] MEDS ORDERED: Dexamethasone 20 MG/5 ML VIAL ONE (07:25)
[2021-05-15] MEDS ORDERED: Lidocaine 1% PF 5 ML VIAL ONE (07:25)
[2021-05-15] MEDS ORDERED: Iothalamate Meglumine 60% 50 ML VIAL FS ONE (07:42)
[2021-05-15] MEDS ORDERED: Oxybutynin 5 MG TAB ONE (08:15)
[2021-05-15] MEDS ORDERED: Phenazopyridine HCl 100 MG TAB ONE (08:15)
[2021-05-15] MEDS ORDERED: Ketorolac Tromethamine 30 MG/ML VIAL ONE (08:15)
== END 2021-05-15 09:58 | disposition home or self-care (01) ==
LOC: SDC 06:23
PROVIDERS: ATTEND Urology
PROC: 0TC78ZZ Extirpation of Matter from Left Ureter, Via Natural or Artificial Opening Endoscopic (ICD-10-PCS; principal; 2021-05-15)
PROC: 0T778DZ Dilation of Left Ureter with Intraluminal Device, Via Natural or Artificial Opening Endoscopic (ICD-10-PCS; 2021-05-15)
DX: N13.6 Pyonephrosis (principal); N81.10 Cystocele, unspecified; I11.0 Hypertensive heart disease with heart failure; I50.9 Heart failure, unspecified; E78.5 Hyperlipidemia, unspecified; G43.909 Migraine, unspecified, not intractable, without status migrainosus; K21.9 Gastro-esophageal reflux disease without esophagitis; I25.10 Atherosclerotic heart disease of native coronary artery without angina pectoris; Z86.73 Personal history of transient ischemic attack (TIA), and cerebral infarction without residual deficits; Z79.2 Long term (current) use of antibiotics; Z79.899 Other long term (current) drug therapy; Z88.0 Allergy status to penicillin; Z88.2 Allergy status to sulfonamides; Z88.8 Allergy status to other drugs, medicaments and biological substances; Z95.5 Presence of coronary angioplasty implant and graft
CPT/HCPCS: 52356; 74420; 82365; C2617; Q9961; 88300; J1100; J1885; J1956; J2405; J2704; J3010; J3490

== ENCOUNTER 2022-01-03 15:33 | Outpatient (CLI) | payer MEDICARE, BC | END 2022-01-03 15:34 | disposition home or self-care (01) | LOC: BICRAD 15:33 | PROVIDERS: ATTEND Urology | DX: Z87.442 Personal history of urinary calculi (principal) | CPT/HCPCS: 74018 ==

== ENCOUNTER 2023-04-23 22:02 | Inpatient (IN) | payer MEDICARE ==
[~2023-04-23 22:02] MED LIST: Iopamidol-370 76% 500 ML MDV (1 ML CHARGE) ONE
[2023-04-23 22:39] LABS: #Monocytes 0.7 thou/uL (0.11-0.59); #Neutrophils 7.1 thou/uL (1.40-6.50); %Basophils 0.3 % (0.0-1.0); %Eosinophils 0.1 % (0.0-10.0); %Lymphocytes 17.5 % (21.0-51.0); %Monocytes 6.8 % (0.0-10.0); %Neutrophils 74.6 % (42.0-75.0); Hematocrit 44.3 % (36.0-47.0); Hemoglobin 14.8 g/dL (12.0-16.0); Mean Corpuscular HGB CONC 33.4 g/dL (32.0-36.0); Mean Corpuscular Hemoglobin 30.1 pg (27.0-31.0); Mean Platelet Volume 9.1 fL (7.4-10.4); Platelet Count 344 10x3/uL (130-400); Red Blood Cell (RBC) Count 4.92 mill/uL (4.20-5.40); White Blood Cell (WBC) Count 9.6 10x3/uL (4.8-10.8)
[2023-04-23 22:46] LABS: Bacteria/HPF None Seen HPF (None Seen); Bilirubin Negative (Negative); Blood, Urine 1+ (Negative); CAUTI Indications for Culture Alt mental st,lethar; Clarity Clear (Clear); Glucose, Urine (Dipstick) Normal (Negative); Ketone, Urine Trace mg/dL (Negative); Leukocyte Negative Leu/uL (Negative); Nitrite Negative (Negative); Protein, Urine (Dipstick) Negative (Neg-Trace); RBC/HPF 0-3 HPF (0-3); Specific Gravity, Urine 1.005 (1.002-1.036); Squamous Epithelial 0-3 HPF (0-3); Urobilinogen Normal mg/dL (Less than 2); WBC/HPF 0-3 HPF (0-3)
[2023-04-23 22:52] LABS: Urine Culture Reflex No No
[2023-04-23 23:01] LABS: INR-International Normal Ratio 1.3; PTT 34.5 sec (22.9-36.1); Prothrombin Time 17.2 sec (12.0-14.7)
[2023-04-23 23:07] LABS: Troponin I 0.017 ng/mL (< 0.028)
[2023-04-23 23:08] LABS: ALT (SGPT) 8 U/L (8-55); AST (SGOT) 18 U/L (5-34); Albumin 4.7 g/dL (3.4-4.8); Alkaline Phosphatase 100 U/L (40-110); Anion Gap 22 mmol/L (10-20); BUN (Urea Nitrogen) 11 mg/dL (9.8-20.1); Bilirubin, Total 0.5 mg/dL (0.2-1.2); Calc. Creatinine Clearance 0 mL/min (70-130); Calcium 11.7 mg/dL (7.8-10.44); Carbon Dioxide 17 mmol/L (23-31); Chloride 100 mmol/L (98-107); Estimated GFR 50; Glucose 90 mg/dL (83-110); Magnesium 1.3 mg/dL (1.6-2.6); Protein, Total 7.7 g/dL (5.8-8.1); Sodium 135 mmol/L (136-145)
[2023-04-24] MEDS ORDERED: Ondansetron ODT 4 MG TAB PO PRN (01:07)
[2023-04-24] MEDS ORDERED: Acetaminophen 650 MG Suppository PR PRN (01:07)
[2023-04-24] MEDS ORDERED: Ondansetron PF 4 MG/2 ML Vial IVP PRN (01:07)
[2023-04-24] MEDS ORDERED: Labetalol HCl 100 MG/20 ML VIAL ONE (01:14)
[2023-04-24] MEDS ORDERED: Magnesium 2 GM/50 ML(in water) 2 GM in Premix 1 BAG IVPB SCH (01:15)
[2023-04-24] MEDS ORDERED: Magnesium 2 GM/50 ML BAG (IN WATER) ONE (01:33)
[2023-04-24] MEDS ORDERED: Aspirin 300 MG Suppository PR SCH ×2 (03:00→09:00)
[2023-04-24 03:16] LABS: #Monocytes 0.7 thou/uL (0.11-0.59); #Neutrophils 5.4 thou/uL (1.40-6.50); %Basophils 0.4 % (0.0-1.0); %Eosinophils 0.1 % (0.0-10.0); %Monocytes 8.1 % (0.0-10.0); %Neutrophils 67.4 % (42.0-75.0); Hematocrit 41.2 % (36.0-47.0); Hemoglobin 13.6 g/dL (12.0-16.0); Mean Corpuscular Hemoglobin 30.1 pg (27.0-31.0); Mean Corpuscular Volume 91.2 fl (78.0-98.0); Mean Platelet Volume 9.5 fL (7.4-10.4); Platelet Count 322 10x3/uL (130-400); RBC Distribution Width 13.1 % (11.5-14.5); Red Blood Cell (RBC) Count 4.52 mill/uL (4.20-5.40); White Blood Cell (WBC) Count 8.1 10x3/uL (4.8-10.8)
[2023-04-24 03:26] LABS: Hemoglobin A1c 5.3 % (4.0-6.0)
[2023-04-24 03:37] LABS: Anion Gap 19 mmol/L (10-20); BUN (Urea Nitrogen) 10 mg/dL (9.8-20.1); Calc. Creatinine Clearance 31 mL/min (70-130); Calcium 11.6 mg/dL (7.8-10.44); Carbon Dioxide 21 mmol/L (23-31); Cardiac Risk 2.8 (Less than 4.5); Chloride 100 mmol/L (98-107); Cholesterol 150 mg/dl (< 200 Desired); Estimated GFR 57; Glucose 100 mg/dL (83-110); HDL Cholesterol 54 mg/dL (>60 Neg Risk); LDL Cholesterol, Calculated 84 mg/dL; Magnesium 1.9 mg/dL (1.6-2.6); Potassium 3.8 mmol/L (3.5-5.1); Sodium 136 mmol/L (136-145); Triglycerides 59 mg/dL (Less than 150)
[2023-04-24] MEDS ORDERED: Aspirin 300 MG Suppository ONE (04:01)
[2023-04-24] MEDS ORDERED: cefTRIAXone (ROCEPHIN) 1 GM VIAL ONE (04:01)
[2023-04-24] MEDS ORDERED: Sodium Chloride 0.9% 100 ML ONE (04:01)
[2023-04-24] MEDS: cefTRIAXone\\ROCEPHIN 1 GM in Sodium Chloride 0.9% 100 ML IVPB SCH (04:17)
[2023-04-24] MEDS ORDERED: Sodium Chloride 0.9% 1,000 ML IV SCH (05:45)
[2023-04-24 06:12] LABS: Amphetamine Not Detected (NotDetected); Barbiturates Screen Not Detected (NotDetected); Benzodiazepine Screen Not Detected (NotDetected); Cocaine Metabolite Screen Not Detected (NotDetected); Methadone Not Detected (NotDetected); Methamphetamine Not Detected (NotDetected); Opiate Screen Detected (NotDetected); Oxycodone Screen Not Detected (NotDetected); Phencyclidine (PCP) Not Detected (NotDetected); THC/Cannabinoid Screen Not Detected (NotDetected); Tricyclic Screen Not Detected (NotDetected)
[2023-04-24] MEDS: Labetalol HCl 100 MG/20 ML VIAL SLOW IVP PRN ×2 (14:10→23:52)
[2023-04-24] MEDS ORDERED: LORazepam 2 MG/ML SYR.(CARPUJECT) ONE ×3 (18:12→19:15)
[2023-04-24 18:55] LABS: #Monocytes 0.7 thou/uL (0.11-0.59); #Neutrophils 7.5 thou/uL (1.40-6.50); %Basophils 0.3 % (0.0-1.0); %Eosinophils 0.1 % (0.0-10.0); %Lymphocytes 22.4 % (21.0-51.0); %Monocytes 6.8 % (0.0-10.0); %Neutrophils 68.7 % (42.0-75.0); Hemoglobin 14.1 g/dL (12.0-16.0); Mean Corpuscular HGB CONC 33.6 g/dL (32.0-36.0); Mean Corpuscular Hemoglobin 30.3 pg (27.0-31.0); Mean Corpuscular Volume 90.1 fl (78.0-98.0); Mean Platelet Volume 9.1 fL (7.4-10.4); Platelet Count 321 10x3/uL (130-400); RBC Distribution Width 13.2 % (11.5-14.5); Red Blood Cell (RBC) Count 4.66 mill/uL (4.20-5.40)
[2023-04-24 19:26] LABS: ALT (SGPT) 7 U/L (8-55); AST (SGOT) 15 U/L (5-34); Albumin 4.4 g/dL (3.4-4.8); Alkaline Phosphatase 89 U/L (40-110); Anion Gap 23 mmol/L (10-20); BUN (Urea Nitrogen) 8 mg/dL (9.8-20.1); Bilirubin, Total 0.4 mg/dL (0.2-1.2); Calc. Creatinine Clearance 34 mL/min (70-130); Calcium 11.2 mg/dL (7.8-10.44); Carbon Dioxide 16 mmol/L (23-31); Chloride 101 mmol/L (98-107); Estimated GFR 46; Globulin 2.3 g/dL (2.4-3.5); Glucose 146 mg/dL (83-110); Potassium 3.5 mmol/L (3.5-5.1); Protein, Total 6.7 g/dL (5.8-8.1); Sodium 136 mmol/L (136-145)
[2023-04-24 19:27] LABS: Troponin I 0.019 ng/mL (< 0.028)
[2023-04-25] MEDS: cefTRIAXone\\ROCEPHIN 1 GM in Sodium Chloride 0.9% 100 ML IVPB SCH (03:16)
[2023-04-25 03:56] LABS: #Monocytes 0.8 thou/uL (0.11-0.59); #Neutrophils 8.5 thou/uL (1.40-6.50); %Basophils 0.2 % (0.0-1.0); %Eosinophils 0.2 % (0.0-10.0); %Monocytes 7.3 % (0.0-10.0); %Neutrophils 75.5 % (42.0-75.0); Hematocrit 41.1 % (36.0-47.0); Hemoglobin 13.7 g/dL (12.0-16.0); Mean Corpuscular HGB CONC 33.3 g/dL (32.0-36.0); Mean Corpuscular Hemoglobin 29.9 pg (27.0-31.0); Mean Corpuscular Volume 89.7 fl (78.0-98.0); Mean Platelet Volume 9.1 fL (7.4-10.4); Platelet Count 288 10x3/uL (130-400); RBC Distribution Width 13.2 % (11.5-14.5); Red Blood Cell (RBC) Count 4.58 mill/uL (4.20-5.40); White Blood Cell (WBC) Count 11.3 10x3/uL (4.8-10.8)
[2023-04-25 04:22] LABS: Anion Gap 17 mmol/L (10-20); BUN (Urea Nitrogen) 10 mg/dL (9.8-20.1); Calc. Creatinine Clearance 44 mL/min (70-130); Calcium 10.7 mg/dL (7.8-10.44); Carbon Dioxide 20 mmol/L (23-31); Chloride 103 mmol/L (98-107); Estimated GFR 71; Glucose 114 mg/dL (83-110); Potassium 3.6 mmol/L (3.5-5.1); Sodium 136 mmol/L (136-145)
[2023-04-25] MEDS ORDERED: Aspirin 300 MG Suppository PR SCH ×2 (09:00)
[2023-04-25] MEDS ORDERED: Furosemide 20 MG/2 ML VIAL SLOW IVP SCH (09:15)
[2023-04-25] MEDS ORDERED: levETIRAcetam 500 MG/5 ML VIAL SLOW IVP SCH ×2 (13:22→13:45)
[2023-04-25] MEDS ORDERED: Valproate Sodium 500 MG in Sodium Chloride 0.9% 100 ML IVPB SCH (13:30)
[2023-04-25 15:37] LABS: Magnesium 1.5 mg/dL (1.6-2.6)
[2023-04-25] MEDS: levETIRAcetam 500 MG/5 ML VIAL SLOW IVP SCH (20:08)
[2023-04-26] MEDS: cefTRIAXone\\ROCEPHIN 1 GM in Sodium Chloride 0.9% 100 ML IVPB SCH (03:35)
[2023-04-26 04:29] LABS: #Monocytes 0.7 thou/uL (0.11-0.59); #Neutrophils 6.4 thou/uL (1.40-6.50); %Basophils 0.3 % (0.0-1.0); %Eosinophils 0.2 % (0.0-10.0); %Lymphocytes 21.8 % (21.0-51.0); %Monocytes 7.5 % (0.0-10.0); %Neutrophils 69.6 % (42.0-75.0); Hematocrit 39.2 % (36.0-47.0); Mean Corpuscular HGB CONC 33.2 g/dL (32.0-36.0); Mean Corpuscular Hemoglobin 29.9 pg (27.0-31.0); Mean Corpuscular Volume 90.1 fl (78.0-98.0); Mean Platelet Volume 9.2 fL (7.4-10.4); Platelet Count 216 10x3/uL (130-400); Red Blood Cell (RBC) Count 4.35 mill/uL (4.20-5.40); White Blood Cell (WBC) Count 9.2 10x3/uL (4.8-10.8)
[2023-04-26 04:50] LABS: Anion Gap 15 mmol/L (10-20); BUN (Urea Nitrogen) 16 mg/dL (9.8-20.1); Calc. Creatinine Clearance 49 mL/min (70-130); Calcium 10.8 mg/dL (7.8-10.44); Carbon Dioxide 24 mmol/L (23-31); Chloride 103 mmol/L (98-107); Estimated GFR 79; Glucose 87 mg/dL (83-110); Potassium 3.2 mmol/L (3.5-5.1); Sodium 139 mmol/L (136-145)
[2023-04-26] MEDS ORDERED: Magnesium 2 GM/50 ML(in water) 2 GM in Premix 1 BAG IVPB SCH (08:00)
[2023-04-26] MEDS: levETIRAcetam 500 MG/5 ML VIAL SLOW IVP SCH ×2 (09:02→20:17)
[2023-04-26] MEDS: Labetalol HCl 100 MG/20 ML VIAL SLOW IVP PRN ×2 (09:20→15:10)
[2023-04-26] MEDS: Aspirin Chewable 81 MG TAB PO SCH (10:08)
[2023-04-26] MEDS: Potassium Chloride 20 MEQ in Premix 1 BAG IVPB SCH ×2 (10:08→13:18)
[2023-04-26 13:27] LABS: Magnesium 2.3 mg/dL (1.6-2.6)
[2023-04-26] MEDS: Acetaminophen 325 MG TAB PO SCH ×2 (15:00→20:22)
[2023-04-27] MEDS: Acetaminophen 325 MG TAB PO SCH ×4 (02:06→21:26)
[2023-04-27] MEDS ORDERED: Electrolyte Replacement Protocol 1 EACH FS SCH (02:45)
[2023-04-27 03:48] LABS: #Monocytes 0.5 thou/uL (0.11-0.59); %Basophils 0.3 % (0.0-1.0); %Eosinophils 0.4 % (0.0-10.0); %Monocytes 7.1 % (0.0-10.0); %Neutrophils 67.8 % (42.0-75.0); Hematocrit 38.9 % (36.0-47.0); Hemoglobin 12.7 g/dL (12.0-16.0); Mean Corpuscular HGB CONC 32.6 g/dL (32.0-36.0); Mean Corpuscular Hemoglobin 29.9 pg (27.0-31.0); Mean Corpuscular Volume 91.5 fl (78.0-98.0); Mean Platelet Volume 9.7 fL (7.4-10.4); Platelet Count 225 10x3/uL (130-400); RBC Distribution Width 13.1 % (11.5-14.5); Red Blood Cell (RBC) Count 4.25 mill/uL (4.20-5.40); White Blood Cell (WBC) Count 7.3 10x3/uL (4.8-10.8)
[2023-04-27 04:11] LABS: Anion Gap 17 mmol/L (10-20); BUN (Urea Nitrogen) 19 mg/dL (9.8-20.1); Calc. Creatinine Clearance 50 mL/min (70-130); Calcium 10.9 mg/dL (7.8-10.44); Carbon Dioxide 21 mmol/L (23-31); Chloride 106 mmol/L (98-107); Estimated GFR 82; Glucose 75 mg/dL (83-110); Magnesium 1.9 mg/dL (1.6-2.6); Potassium 3.6 mmol/L (3.5-5.1); Sodium 140 mmol/L (136-145)
[2023-04-27] MEDS: cefTRIAXone\\ROCEPHIN 1 GM in Sodium Chloride 0.9% 100 ML IVPB SCH (04:30)
[2023-04-27] MEDS ORDERED: Magnesium 2 GM/50 ML(in water) 2 GM in Premix 1 BAG IVPB SCH (08:00)
[2023-04-27] MEDS: levETIRAcetam 500 MG/5 ML VIAL SLOW IVP SCH ×2 (09:14→21:26)
[2023-04-27] MEDS: Aspirin Chewable 81 MG TAB PO SCH (09:15)
[2023-04-27] MEDS: Isosorbide Mononitrate 30 MG ER.TAB PO SCH (09:27)
[2023-04-27] MEDS: Magnesium Oxide 400 MG TAB PO SCH (09:27)
[2023-04-27] MEDS: Apixaban 5 MG TAB PO SCH (09:28)
[2023-04-27] MEDS: Amlodipine 5 MG TAB PO SCH (09:28)
[2023-04-27] MEDS: Morphine 4 MG/ML VIAL SLOW IVP PRN ×2 (12:49→18:36)
[2023-04-28] MEDS: cefTRIAXone\\ROCEPHIN 1 GM in Sodium Chloride 0.9% 100 ML IVPB SCH (03:28)
[2023-04-28] MEDS: Acetaminophen 325 MG TAB PO SCH ×5 (03:37→20:06)
[2023-04-28 06:37] LABS: #Monocytes 0.5 thou/uL (0.11-0.59); #Neutrophils 5.2 thou/uL (1.40-6.50); %Basophils 0.5 % (0.0-1.0); %Eosinophils 0.5 % (0.0-10.0); %Lymphocytes 25.1 % (21.0-51.0); %Monocytes 6.1 % (0.0-10.0); %Neutrophils 66.9 % (42.0-75.0); Hematocrit 37.7 % (36.0-47.0); Hemoglobin 12.3 g/dL (12.0-16.0); Mean Corpuscular HGB CONC 32.6 g/dL (32.0-36.0); Mean Corpuscular Hemoglobin 30.3 pg (27.0-31.0); Mean Corpuscular Volume 92.9 fl (78.0-98.0); Mean Platelet Volume 10.1 fL (7.4-10.4); Platelet Count 259 10x3/uL (130-400); RBC Distribution Width 13.2 % (11.5-14.5); Red Blood Cell (RBC) Count 4.06 mill/uL (4.20-5.40); White Blood Cell (WBC) Count 7.7 10x3/uL (4.8-10.8)
[2023-04-28 07:08] LABS: Anion Gap 18 mmol/L (10-20); BUN (Urea Nitrogen) 19 mg/dL (9.8-20.1); Calc. Creatinine Clearance 50 mL/min (70-130); Calcium 10.9 mg/dL (7.8-10.44); Carbon Dioxide 19 mmol/L (23-31); Chloride 107 mmol/L (98-107); Estimated GFR 83; Glucose 68 mg/dL (83-110); Potassium 3.8 mmol/L (3.5-5.1); Sodium 140 mmol/L (136-145)
[2023-04-28] MEDS: Aspirin Chewable 81 MG TAB PO SCH ×2 (08:41→14:33)
[2023-04-28] MEDS: levETIRAcetam 500 MG/5 ML VIAL SLOW IVP SCH ×2 (08:41→20:06)
[2023-04-28] MEDS: Amlodipine 5 MG TAB PO SCH (08:41)
[2023-04-28] MEDS: Isosorbide Mononitrate 30 MG ER.TAB PO SCH ×2 (08:42→14:33)
[2023-04-28] MEDS: Losartan 25 MG TAB PO SCH ×2 (08:44→14:33)
[2023-04-28] MEDS: Magnesium Oxide 400 MG TAB PO SCH ×2 (08:44→14:33)
[2023-04-28] MEDS: Apixaban 5 MG TAB PO SCH ×2 (08:44→14:32)
[2023-04-28] MEDS: Labetalol HCl 100 MG/20 ML VIAL SLOW IVP PRN (08:47)
[2023-04-28] MEDS: Morphine 4 MG/ML VIAL SLOW IVP PRN ×3 (09:20→23:09)
[2023-04-29] MEDS: Labetalol HCl 100 MG/20 ML VIAL SLOW IVP PRN (03:11)
[2023-04-29] MEDS: Acetaminophen 325 MG TAB PO SCH ×4 (03:41→20:38)
[2023-04-29 06:15] LABS: Anion Gap 18 mmol/L (10-20); BUN (Urea Nitrogen) 18 mg/dL (9.8-20.1); Calc. Creatinine Clearance 46 mL/min (70-130); Calcium 10.9 mg/dL (7.8-10.44); Carbon Dioxide 21 mmol/L (23-31); Chloride 105 mmol/L (98-107); Estimated GFR 74; Glucose 75 mg/dL (83-110); Potassium 3.5 mmol/L (3.5-5.1); Sodium 140 mmol/L (136-145)
[2023-04-29] MEDS: Isosorbide Mononitrate 30 MG ER.TAB PO SCH (09:14)
[2023-04-29] MEDS: Apixaban 5 MG TAB PO SCH (09:15)
[2023-04-29] MEDS: Aspirin Chewable 81 MG TAB PO SCH (09:15)
[2023-04-29] MEDS: Amlodipine 5 MG TAB PO SCH (09:18)
[2023-04-29] MEDS: levETIRAcetam 500 MG/5 ML VIAL SLOW IVP SCH ×2 (09:19→20:39)
[2023-04-29] MEDS: Losartan 25 MG TAB PO SCH (09:19)
[2023-04-29] MEDS: Magnesium Oxide 400 MG TAB PO SCH (09:19)
[2023-04-29] MEDS: Morphine 4 MG/ML VIAL SLOW IVP PRN ×3 (11:08→23:40)
[2023-04-29 11:42] VITALS: BMI 22.8
[2023-04-29] MEDS ORDERED: Potassium Chloride 20 MEQ TAB PO SCH (13:15)
[2023-04-30] MEDS: Acetaminophen 325 MG TAB PO SCH ×2 (02:06→09:30)
[2023-04-30] MEDS: Isosorbide Mononitrate 30 MG ER.TAB PO SCH (09:29)
[2023-04-30] MEDS: Aspirin Chewable 81 MG TAB PO SCH (09:30)
[2023-04-30] MEDS: Amlodipine 5 MG TAB PO SCH (09:30)
[2023-04-30] MEDS: Magnesium Oxide 400 MG TAB PO SCH (09:32)
[2023-04-30] MEDS: Losartan 25 MG TAB PO SCH (09:32)
[2023-04-30] MEDS: levETIRAcetam 500 MG/5 ML VIAL SLOW IVP SCH (09:32)
[2023-04-30] MEDS: Apixaban 5 MG TAB PO SCH (09:33)
[2023-04-30] MEDS: Morphine 4 MG/ML VIAL SLOW IVP PRN (09:44)
[2023-04-30 11:23] VITALS: BP 128/60; TEMP 97.5
== END 2023-04-30 13:40 | disposition hospice, inpatient (51) | DRG 91 ==
LOC: ERS 22:02 → ERHOLD 04-24 00:25 → 2SE 04-24 19:51
PROVIDERS: ADMIT Internal Medicine; ATTEND Family Medicine
PROC: 0T9B70Z Drainage of Bladder with Drainage Device, Via Natural or Artificial Opening (ICD-10-PCS; principal; 2023-04-24)
PROC: 4A00X4Z Measurement of Central Nervous Electrical Activity, External Approach (ICD-10-PCS; 2023-04-24)
PROC: 4A00X4Z Measurement of Central Nervous Electrical Activity, External Approach (ICD-10-PCS; 2023-04-25)
DX: R47.02 Dysphasia (principal); G93.41 Metabolic encephalopathy; I26.99 Other pulmonary embolism without acute cor pulmonale; I47.20 Ventricular tachycardia, unspecified; I50.32 Chronic diastolic (congestive) heart failure; N17.9 Acute kidney failure, unspecified; Z66 Do not resuscitate; E83.42 Hypomagnesemia; E78.5 Hyperlipidemia, unspecified; I25.10 Atherosclerotic heart disease of native coronary artery without angina pectoris; I11.0 Hypertensive heart disease with heart failure; Z88.8 Allergy status to other drugs, medicaments and biological substances; Z88.1 Allergy status to other antibiotic agents; Z79.899 Other long term (current) drug therapy; Z95.0 Presence of cardiac pacemaker; F32.A Depression, unspecified; Z79.01 Long term (current) use of anticoagulants; Z90.49 Acquired absence of other specified parts of digestive tract; Z98.890 Other specified postprocedural states; Z79.82 Long term (current) use of aspirin; Z88.0 Allergy status to penicillin; K21.9 Gastro-esophageal reflux disease without esophagitis; G40.909 Epilepsy, unspecified, not intractable, without status epilepticus; F03.90 Unspecified dementia, unspecified severity, without behavioral disturbance, psychotic disturbance, mood disturbance, and anxiety; E83.52 Hypercalcemia; E87.6 Hypokalemia
CPT/HCPCS: 36415; 36416; 51701; 70450; 70496; 70498; 70551; 71045; 80048; 80053; 80061; 80306; 81001; 82140; 83036; 83605; 83735; 83880; 84443; 84484; 85025; 85610; 85730; 87040; 87086; 93005; 93306; 94760; 95711; 95819; 96374; 96376; J0360; J0696; J1650; J1940; J1953; J2060; J2270; J3475; J3480; J3490; J7050; Q9967

== ENCOUNTER 2023-08-29 20:05 | Emergency (ER) | payer MEDICARE ==
[2023-08-29 20:54] LABS: Bilirubin Negative (Negative); Blood, Urine 2+ (Negative); CAUTI Indications for Culture Alt mental st,lethar; Calcium Oxalate Crystals Rare HPF (None Seen); Clarity Clear (Clear); Glucose, Urine (Dipstick) Normal (Negative); Ketone, Urine Negative (Negative); Leukocyte 25 Leu/uL (Negative); Nitrite Negative (Negative); Protein, Urine (Dipstick) Negative (Neg-Trace); RBC/HPF Greater than 50 HPF (0-3); Specific Gravity, Urine 1.009 (1.002-1.036); Squamous Epithelial 0-3 HPF (0-3); Urobilinogen Normal mg/dL (Less than 2); WBC/HPF 0-3 HPF (0-3)
[2023-08-29 20:57] LABS: Bacteria/HPF Rare-Few HPF (None Seen); Urine Culture Reflex No No
[2023-08-29 20:59] LABS: Amphetamine Not Detected (NotDetected); Barbiturates Screen Not Detected (NotDetected); Benzodiazepine Screen Not Detected (NotDetected); Cocaine Metabolite Screen Not Detected (NotDetected); Methadone Not Detected (NotDetected); Methamphetamine Not Detected (NotDetected); Opiate Screen Not Detected (NotDetected); Oxycodone Screen Not Detected (NotDetected); Phencyclidine (PCP) Not Detected (NotDetected); THC/Cannabinoid Screen Detected (NotDetected); Tricyclic Screen Not Detected (NotDetected)
[2023-08-29 21:28] LABS: #Monocytes 0.3 thou/uL (0.11-0.59); #Neutrophils 3.7 thou/uL (1.40-6.50); %Basophils 0.3 % (0.0-1.0); %Eosinophils 0.6 % (0.0-10.0); %Lymphocytes 35.2 % (21.0-51.0); %Monocytes 4.1 % (0.0-10.0); %Neutrophils 59.5 % (42.0-75.0); Hematocrit 39.6 % (36.0-47.0); Hemoglobin 12.8 g/dL (12.0-16.0); Mean Corpuscular HGB CONC 32.3 g/dL (32.0-36.0); Mean Corpuscular Hemoglobin 30.6 pg (27.0-31.0); Mean Corpuscular Volume 94.7 fl (78.0-98.0); Mean Platelet Volume 10.7 fL (7.4-10.4); Platelet Count 166 10x3/uL (130-400); RBC Distribution Width 13.5 % (11.5-14.5); Red Blood Cell (RBC) Count 4.18 mill/uL (4.20-5.40); White Blood Cell (WBC) Count 6.2 10x3/uL (4.8-10.8)
[2023-08-29 21:40] LABS: Acetaminophen 17 mcg/mL (10.0-30.0); Alcohol Less than 10.0 mg/dL (Less than 10); Lipase 25 U/L (8-78); Magnesium 1.6 mg/dL (1.6-2.6); Salicylate Less than 8.0 mg/dL (15.0-30.0)
[2023-08-29 21:42] LABS: ALT (SGPT) 12 U/L (8-55); AST (SGOT) 20 U/L (5-34); Albumin 3.9 g/dL (3.4-4.8); Alkaline Phosphatase 64 U/L (40-110); Anion Gap 14 mmol/L (10-20); BUN (Urea Nitrogen) 16 mg/dL (9.8-20.1); Bilirubin, Total 0.7 mg/dL (0.2-1.2); Calc. Creatinine Clearance 0 mL/min (70-130); Calcium 10.1 mg/dL (7.8-10.44); Carbon Dioxide 26 mmol/L (23-31); Chloride 106 mmol/L (98-107); Estimated GFR 75; Globulin 2.2 g/dL (2.4-3.5); Glucose 96 mg/dL (83-110); Potassium 3.9 mmol/L (3.5-5.1); Protein, Total 6.1 g/dL (5.8-8.1); Sodium 142 mmol/L (136-145); Troponin I Less than 0.010 ng/mL (< 0.028)
[2023-08-29 21:46] LABS: INR-International Normal Ratio 1.2; PTT 34.1 sec (22.9-36.1); Prothrombin Time 14.8 sec (12.0-14.7)
== END 2023-08-29 23:48 ==
LOC: ERS 20:05
DX: R41.82 Altered mental status, unspecified (principal); F12.90 Cannabis use, unspecified, uncomplicated; I11.0 Hypertensive heart disease with heart failure; I50.30 Unspecified diastolic (congestive) heart failure; Z79.82 Long term (current) use of aspirin; Z79.899 Other long term (current) drug therapy; Z79.01 Long term (current) use of anticoagulants
CPT/HCPCS: 36415; 51701; 70450; 71045; 80053; 80306; 80307; 81001; 83690; 83735; 83880; 84484; 85025; 85610; 85730; 93005